=== PATIENT | male | born 1950 ===

== ENCOUNTER 2022-11-26 09:30 | Inpatient (IN) | payer OTHER ==
[~2022-11-26] VITALS: Ht 182.9 cm; Wt 91.6 kg
[2022-11-26] MEDS ORDERED: CRESTOR10 MG PO (11:37)
[2022-11-26] MEDS ORDERED: PROZAC40 MG PO (11:37)
[2022-11-26] MEDS ORDERED: DILTIAZEM ER180 M3 PO (11:37)
[2022-11-26] MEDS ORDERED: UROXATRAL10 MG PO (11:38)
[2022-11-29] MEDS ORDERED: LORAZEPAM2 MG (08:37)
[2022-11-29] MEDS ORDERED: METFORMIN HCL500 M4 (08:37)
[2022-11-29] MEDS ORDERED: FAMOTIDINE40 MG (08:38)
[2022-11-29] MEDS ORDERED: PANTOPRAZOLE SO40 MG (08:38)
[2022-11-29] MEDS ORDERED: LOSARTAN POTASS25 MG (08:38)
== END 2022-12-01 13:07 | disposition home or self-care (01) | DRG 708 ==
LOC: SURG 11-29 05:40 → O/R 11-29 05:40 → SURH 11-29 07:00 → SURG 11-29 13:34
PROVIDERS: ADMIT Urology; ATTEND Urology
PROC: 07BC0ZZ Excision of Pelvis Lymphatic, Open Approach (ICD-10-PCS; 2022-11-29)
PROC: 0VT00ZZ Resection of Prostate, Open Approach (ICD-10-PCS; principal; 2022-11-29 07:00)
DX: C61 Malignant neoplasm of prostate (principal); I10 Essential (primary) hypertension; E11.9 Type 2 diabetes mellitus without complications